=== PATIENT | male | born 1965 | race Caucasian/White ===

== ENCOUNTER → 2025-02-09 12:54 | Outpatient (REF) | payer OTHER, SELFPAY | LOC: MRI 3T 12:54 | PROVIDERS: ATTENDING PHYSICIAN Specialist | DX: R97.20 Elevated prostate specific antigen [PSA] (principal) | CPT/HCPCS: 72197; A9575 ==

== ENCOUNTER → 2025-03-03 08:29 | Outpatient (REF) | payer OTHER, SELFPAY | LOC: REG 08:29 | PROVIDERS: ATTENDING PHYSICIAN Specialist | DX: A49.02 Methicillin resistant Staphylococcus aureus infection, unspecified site (principal) | CPT/HCPCS: 36415; 87070 ==

== ENCOUNTER → 2025-03-04 08:26 | Outpatient (REF) | payer OTHER, SELFPAY | LOC: REG 08:26 | PROVIDERS: ATTENDING PHYSICIAN Specialist | DX: A49.02 Methicillin resistant Staphylococcus aureus infection, unspecified site (principal) | CPT/HCPCS: 36415; 87070 ==